=== PATIENT | female | born 1950 | race Caucasian/White ===

== ENCOUNTER 2021-05-11 16:45 | Inpatient (IN) ==
[2021-05-11] MEDS ORDERED: Ondansetron 4 MG/2 ML VIAL IVP PRN (20:02)
[2021-05-11] MEDS ORDERED: Naloxone 0.4 MG/ML INJ IVP PRN (20:02)
[2021-05-11] MEDS ORDERED: Acetaminophen 325 MG TABLET PO PRN (20:02)
[2021-05-11 20:36] LABS: ABG Base Excess -2 mEq/L (-2 to 3); ABG HCO3 25 mEq/L (21-27); ABG Oxygen Saturation 92 % (95-98); ABG PCO2 50 mmHg (35-45); ABG PH 7.31 pH Units (7.32-7.45); ABG PO2 70 mmHg (85-104); ABG TCO2 27 mEq/L (20-26)
[2021-05-11 21:24] LABS: Basophils % 0.2 %; Hematocrit 34.3 % (35.3-44.9); Hemoglobin 10.5 g/dL (11.5-15.4); Immature Granulocytes % 0.3 % (0-4); Lymphocytes % 16.7 %; Mean Corpuscular HGB Conc 30.6 g/dL (31.6-35.5); Mean Corpuscular Hemoglobin 31.8 pg (28.0-33.3); Mean Corpuscular Volume 103.9 fL (83.0-100.0); Mean Platelet Volume 9.9 fL (9.4-12.4); Monocytes # 0.1 K/mcL (0.0-1.3); Monocytes % 2.3 %; Platelet Count 119 K/mcL (140-400); Red Cell Distribution Width 14.1 % (11.5-14.5); Segmented Neutrophils % 80.5 %; White Blood Count 6.2 K/mcL (4.3-11.1)
[2021-05-11 21:29] LABS: INR 1.2; Prothrombin Time 13.1 Seconds (9.4-12.1)
[2021-05-11 21:42] LABS: Reactive Lymphocytes Present (Not Present); Smudge Cells Present (Not Present)
[2021-05-11 21:44] LABS: Albumin 2.9 g/dL (3.5-5.7); Albumin/Globulin Ratio 1.3 (1.1-2.2); Bilirubin,Direct 0.3 mg/dL (0.0-0.2); Bilirubin,Indirect 0.3 mg/dL (0.0-1.0); Bilirubin,Total 0.6 mg/dL (0.3-1.0); Globulin 2.2 g/dL (2.4-3.5); Total Protein 5.1 g/dL (6.4-8.9)
[2021-05-11 21:45] LABS: BUN/Creatinine Ratio 25 (6-26); Blood Urea Nitrogen 21 mg/dL (8-23); Calcium 7.3 mg/dL (8.6-10.3); Carbon Dioxide 26 mEq/L (23-29); Chloride 108 mEq/L (98-107); Glucose 253 mg/dL (70-105); Osmolality,Calculated 298 (280-300); Potassium 4.4 mEq/L (3.5-5.1); Sodium 138 mEq/L (136-145); eGFR For African Americans > 60 (> 60); eGFR For Non-African Americans > 60 (> 60)
[2021-05-11 21:46] LABS: Chol/HDL Ratio 4.1 (0-4.9); Magnesium 1.7 mg/dL (1.6-2.6); Phosphorous 1.7 mg/dL (2.7-4.5)
[2021-05-11 21:48] LABS: Troponin I 0.04 ng/mL (< 0.04)
[2021-05-11] MEDS ORDERED: Dextrose Gel 15 GM/37.5 ML TUBE PO PRN ×2 (22:06)
[2021-05-11] MEDS ORDERED: D5% in Water 1,000 ML IVC PRN (22:06)
[2021-05-11] MEDS ORDERED: *HR* Dextrose 50 % in Water (Syg) 50 ML SYRINGE IVP PRN (22:06)
[2021-05-11] MEDS: Insulin LISPRO 300 UNITS/3 ML VIAL SUBQ SCH (22:55)
[2021-05-11] MEDS ORDERED: Remdesivir 200 MG in 0.9 % Sodium Chloride 100 ML IVPB ONE (23:00)
[2021-05-11] MEDS: Ipratropium 1 PUFF INHALER IH SCH (23:28)
[2021-05-12 01:23] LABS: Hematocrit 33.3 % (35.3-44.9); Hemoglobin 10.4 g/dL (11.5-15.4); Immature Granulocytes % 0.7 % (0-4); Lymphocytes # 0.5 K/mcL (0.6-4.6); Lymphocytes % 8.7 %; Mean Corpuscular HGB Conc 31.2 g/dL (31.6-35.5); Mean Corpuscular Hemoglobin 32.2 pg (28.0-33.3); Mean Corpuscular Volume 103.1 fL (83.0-100.0); Mean Platelet Volume 9.6 fL (9.4-12.4); Monocytes # 0.2 K/mcL (0.0-1.3); Monocytes % 2.8 %; Neutrophils # 5.4 K/mcL (1.6-8.9); Platelet Count 115 K/mcL (140-400); Red Blood Count 3.23 M/mcL (3.82-4.97); Red Cell Distribution Width 14.1 % (11.5-14.5); Segmented Neutrophils % 87.8 %; White Blood Count 6.1 K/mcL (4.3-11.1)
[2021-05-12 01:37] LABS: Estimated Average Glucose 298 mg/dl
[2021-05-12 01:40] LABS: Fibrinogen 562 mg/dL (169-393)
[2021-05-12 01:41] LABS: D-Dimer 1054 ng/mLFEU (0-500)
[2021-05-12 02:00] LABS: Alanine Aminotransferase 25 Units/L (7-52); Albumin 2.8 g/dL (3.5-5.7); Albumin/Globulin Ratio 1.3 (1.1-2.2); Alkaline Phosphatase 49 Units/L (34-104); Aspartate Amino Transferase 41 Units/L (13-39); BUN/Creatinine Ratio 31 (6-26); Bilirubin,Direct 0.2 mg/dL (0.0-0.2); Bilirubin,Indirect 0.4 mg/dL (0.0-1.0); Bilirubin,Total 0.6 mg/dL (0.3-1.0); Blood Urea Nitrogen 21 mg/dL (8-23); C-Reactive Protein 255 mg/L (Less than 10); Calcium 7.2 mg/dL (8.6-10.3); Carbon Dioxide 25 mEq/L (23-29); Chloride 110 mEq/L (98-107); Globulin 2.1 g/dL (2.4-3.5); Glucose 247 mg/dL (70-105); Lactate Dehydrogenase 254 Units/L (140-271); Osmolality,Calculated 301 (280-300); Sodium 140 mEq/L (136-145); Total Protein 4.9 g/dL (6.4-8.9); Troponin I 0.04 ng/mL (< 0.04); eGFR For African Americans > 60 (> 60); eGFR For Non-African Americans > 60 (> 60)
[2021-05-12] MEDS ORDERED: Isovue-370 500 ML BOTTLE IVP ONE (02:10)
[2021-05-12 02:55] LABS: Thyroid Stimulating Hormone 8.606 mcIU/mL (0.340-5.600)
[2021-05-12] MEDS: Ipratropium 1 PUFF INHALER IH SCH ×6 (03:49→23:35)
[2021-05-12] MEDS: Gabapentin 400 MG CAPSULE PO SCH ×4 (05:14→19:58)
[2021-05-12 07:42] LABS: Ferritin 348 ng/mL (10-120)
[2021-05-12] MEDS: Insulin LISPRO 300 UNITS/3 ML VIAL SUBQ SCH ×4 (08:17→19:59)
[2021-05-12] MEDS: *HR* Enoxaparin 40 MG/0.4 ML SYRINGE SQ SCH (08:18)
[2021-05-12] MEDS ORDERED: levoFLOXacin 750 MG/150 ML 750 MG/150 ML BAG IVPB SCH (09:00)
[2021-05-12] MEDS: Azithromycin 500 MG in 0.9 % Sodium Chloride 250 ML IVPB SCH (14:17)
[2021-05-12] MEDS: Insulin DETEMIR 100 UNIT/ML X5UNITS SUBQ SCH (14:18)
[2021-05-12] MEDS: Nicotine 21 MG PATCH.TD24 TD SCH (14:18)
[2021-05-12] MEDS: cefTRIAXone 2,000 MG in Water for inj. (sterile) 20 ML IVP SCH (14:18)
[2021-05-12] MEDS ORDERED: rOPINIRole 1 MG TABLET PO ONE (17:40)
[2021-05-12] MEDS: rOPINIRole 1 MG TABLET PO SCH (18:01)
[2021-05-12] MEDS: Melatonin 3 MG TABLET PO SCH (19:58)
[2021-05-12] MEDS: Remdesivir 100 MG in 0.9 % Sodium Chloride 100 ML IVPB SCH (22:36)
[2021-05-13] MEDS: Ipratropium 1 PUFF INHALER IH SCH ×6 (04:02→23:49)
[2021-05-13 06:52] LABS: Hematocrit 34.3 % (35.3-44.9); Hemoglobin 10.9 g/dL (11.5-15.4); Mean Corpuscular HGB Conc 31.8 g/dL (31.6-35.5); Mean Corpuscular Hemoglobin 32.1 pg (28.0-33.3); Mean Corpuscular Volume 100.9 fL (83.0-100.0); Mean Platelet Volume 9.9 fL (9.4-12.4); Platelet Count 181 K/mcL (140-400); Red Cell Distribution Width 14.1 % (11.5-14.5)
[2021-05-13 07:07] LABS: Alanine Aminotransferase 26 Units/L (7-52); Albumin 2.9 g/dL (3.5-5.7); Albumin/Globulin Ratio 1.3 (1.1-2.2); Alkaline Phosphatase 52 Units/L (34-104); Aspartate Amino Transferase 32 Units/L (13-39); BUN/Creatinine Ratio 36 (6-26); Bilirubin,Direct 0.2 mg/dL (0.0-0.2); Bilirubin,Indirect 0.3 mg/dL (0.0-1.0); Bilirubin,Total 0.5 mg/dL (0.3-1.0); Blood Urea Nitrogen 26 mg/dL (8-23); Calcium 7.5 mg/dL (8.6-10.3); Carbon Dioxide 26 mEq/L (23-29); Chloride 111 mEq/L (98-107); Globulin 2.2 g/dL (2.4-3.5); Glucose 260 mg/dL (70-105); Osmolality,Calculated 302 (280-300); Potassium 4.8 mEq/L (3.5-5.1); Sodium 139 mEq/L (136-145); Total Protein 5.1 g/dL (6.4-8.9); eGFR For African Americans > 60 (> 60); eGFR For Non-African Americans > 60 (> 60)
[2021-05-13] MEDS: Aspirin Enteric Coated 81 MG Tablet PO SCH (10:13)
[2021-05-13] MEDS: Gabapentin 400 MG CAPSULE PO SCH ×3 (10:14→20:33)
[2021-05-13] MEDS: rOPINIRole 1 MG TABLET PO SCH ×2 (10:14→20:32)
[2021-05-13] MEDS: Nicotine 21 MG PATCH.TD24 TD SCH (10:15)
[2021-05-13] MEDS: *HR* Enoxaparin 40 MG/0.4 ML SYRINGE SQ SCH (10:16)
[2021-05-13] MEDS: Insulin DETEMIR 100 UNIT/ML X5UNITS SUBQ SCH (10:20)
[2021-05-13] MEDS: Insulin LISPRO 300 UNITS/3 ML VIAL SUBQ SCH ×4 (10:21→20:48)
[2021-05-13] MEDS: cefTRIAXone 2,000 MG in Water for inj. (sterile) 20 ML IVP SCH (12:44)
[2021-05-13] MEDS: Azithromycin 500 MG in 0.9 % Sodium Chloride 250 ML IVPB SCH (12:45)
[2021-05-13] MEDS: Furosemide 20 MG/2 ML VIAL IVP SCH (12:46)
[2021-05-13] MEDS: Melatonin 3 MG TABLET PO SCH (20:32)
[2021-05-14] MEDS: Remdesivir 100 MG in 0.9 % Sodium Chloride 100 ML IVPB SCH ×2 (00:08→20:49)
[2021-05-14 02:23] LABS: Bacteria,Urine Few per hpf (None-Few); Bilirubin,Urine Negative (Negative); Blood,Urine Moderate (Negative); Clarity,Urine Clear (Clear); Color,Urine Yellow (Yellow); Glucose,Urine (UA) 200 mg/dL (Normal); Ketones,Urine Negative (Negative); Leukocyte Esterase,Urine Small (Negative); Nitrite,Urine Negative (Negative); PH,Urine 6.5 pH Units (5.0-8.0); Protein,Urine 50 mg/dL (Neg-Trace); RBC,Urine TNTC per hpf (0-3); Specific Gravity,Urine > 1.030 (1.010-1.025); Squamous Epithelial Cell,Urine Few per hpf (None-Few); Urobilinogen,Urine Normal (Normal); WBC,Urine TNTC per hpf (0-3)
[2021-05-14] MEDS: Ipratropium 1 PUFF INHALER IH SCH ×5 (03:39→20:44)
[2021-05-14 06:36] LABS: Hematocrit 35.3 % (35.3-44.9); Hemoglobin 11.1 g/dL (11.5-15.4); Mean Corpuscular HGB Conc 31.4 g/dL (31.6-35.5); Mean Corpuscular Hemoglobin 32.4 pg (28.0-33.3); Mean Corpuscular Volume 102.9 fL (83.0-100.0); Mean Platelet Volume 9.5 fL (9.4-12.4); Platelet Count 219 K/mcL (140-400); Red Blood Count 3.43 M/mcL (3.82-4.97); Red Cell Distribution Width 14.3 % (11.5-14.5); White Blood Count 6.8 K/mcL (4.3-11.1)
[2021-05-14 06:56] LABS: Alanine Aminotransferase 25 Units/L (7-52); Albumin 2.8 g/dL (3.5-5.7); Albumin/Globulin Ratio 1.3 (1.1-2.2); Alkaline Phosphatase 56 Units/L (34-104); Aspartate Amino Transferase 21 Units/L (13-39); BUN/Creatinine Ratio 34 (6-26); Bilirubin,Direct 0.1 mg/dL (0.0-0.2); Bilirubin,Indirect 0.3 mg/dL (0.0-1.0); Bilirubin,Total 0.4 mg/dL (0.3-1.0); Blood Urea Nitrogen 26 mg/dL (8-23); Calcium 7.6 mg/dL (8.6-10.3); Carbon Dioxide 24 mEq/L (23-29); Chloride 109 mEq/L (98-107); Globulin 2.1 g/dL (2.4-3.5); Glucose 252 mg/dL (70-105); Osmolality,Calculated 301 (280-300); Potassium 4.1 mEq/L (3.5-5.1); Sodium 139 mEq/L (136-145); Total Protein 4.9 g/dL (6.4-8.9); eGFR For African Americans > 60 (> 60); eGFR For Non-African Americans > 60 (> 60)
[2021-05-14] MEDS: Insulin LISPRO 300 UNITS/3 ML VIAL SUBQ SCH ×4 (08:01→20:48)
[2021-05-14] MEDS: Aspirin Enteric Coated 81 MG Tablet PO SCH (08:02)
[2021-05-14] MEDS: Gabapentin 400 MG CAPSULE PO SCH ×3 (08:03→20:49)
[2021-05-14] MEDS: rOPINIRole 1 MG TABLET PO SCH ×2 (08:03→20:49)
[2021-05-14] MEDS: Insulin DETEMIR 100 UNIT/ML X5UNITS SUBQ SCH (08:05)
[2021-05-14] MEDS: *HR* Enoxaparin 40 MG/0.4 ML SYRINGE SQ SCH (08:06)
[2021-05-14] MEDS: Furosemide 20 MG/2 ML VIAL IVP SCH (08:09)
[2021-05-14] MEDS: Nicotine 21 MG PATCH.TD24 TD SCH (08:28)
[2021-05-14] MEDS: Azithromycin 250 MG TABLET PO SCH (12:27)
[2021-05-14] MEDS: cefTRIAXone 2,000 MG in Water for inj. (sterile) 20 ML IVP SCH (12:27)
[2021-05-14] MEDS: Melatonin 3 MG TABLET PO SCH (20:49)
[2021-05-15] MEDS: Ipratropium 1 PUFF INHALER IH SCH ×5 (00:18→15:47)
[2021-05-15 04:35] LABS: Hematocrit 33.7 % (35.3-44.9); Mean Corpuscular HGB Conc 32.6 g/dL (31.6-35.5); Mean Corpuscular Hemoglobin 32.6 pg (28.0-33.3); Mean Platelet Volume 9.5 fL (9.4-12.4); Platelet Count 256 K/mcL (140-400); Red Blood Count 3.37 M/mcL (3.82-4.97); White Blood Count 7.5 K/mcL (4.3-11.1)
[2021-05-15 04:58] LABS: Alanine Aminotransferase 24 Units/L (7-52); Albumin 2.8 g/dL (3.5-5.7); Albumin/Globulin Ratio 1.3 (1.1-2.2); Alkaline Phosphatase 51 Units/L (34-104); Aspartate Amino Transferase 17 Units/L (13-39); BUN/Creatinine Ratio 30 (6-26); Bilirubin,Direct 0.1 mg/dL (0.0-0.2); Bilirubin,Indirect 0.4 mg/dL (0.0-1.0); Bilirubin,Total 0.5 mg/dL (0.3-1.0); Blood Urea Nitrogen 23 mg/dL (8-23); Calcium 7.4 mg/dL (8.6-10.3); Carbon Dioxide 24 mEq/L (23-29); Chloride 108 mEq/L (98-107); Globulin 2.1 g/dL (2.4-3.5); Glucose 265 mg/dL (70-105); Osmolality,Calculated 303 (280-300); Potassium 3.8 mEq/L (3.5-5.1); Sodium 140 mEq/L (136-145); Total Protein 4.9 g/dL (6.4-8.9); eGFR For African Americans > 60 (> 60); eGFR For Non-African Americans > 60 (> 60)
[2021-05-15 06:38] VITALS: TEMP 97
[2021-05-15] MEDS: Insulin LISPRO 300 UNITS/3 ML VIAL SUBQ SCH ×2 (08:27→11:40)
[2021-05-15] MEDS: Nicotine 21 MG PATCH.TD24 TD SCH (08:29)
[2021-05-15] MEDS: Gabapentin 400 MG CAPSULE PO SCH ×2 (08:30→14:35)
[2021-05-15] MEDS: Aspirin Enteric Coated 81 MG Tablet PO SCH (08:30)
[2021-05-15] MEDS: rOPINIRole 1 MG TABLET PO SCH (08:31)
[2021-05-15] MEDS: Insulin DETEMIR 100 UNIT/ML X5UNITS SUBQ SCH (08:33)
[2021-05-15] MEDS: Furosemide 20 MG/2 ML VIAL IVP SCH (08:34)
[2021-05-15] MEDS: *HR* Enoxaparin 40 MG/0.4 ML SYRINGE SQ SCH (08:42)
[2021-05-15 11:43] VITALS: BP 114/60; PULSE 84; O2SAT 94
[2021-05-15] MEDS: cefTRIAXone 2,000 MG in Water for inj. (sterile) 20 ML IVP SCH (14:35)
[2021-05-15] MEDS: Azithromycin 250 MG TABLET PO SCH (14:35)
== END 2021-05-15 17:30 | disposition home or self-care (01) | DRG 177 ==
LOC: 2NENU → SUATTDRO 20:16
PROVIDERS: ADMIT Internal Medicine; ATTEND Internal Medicine